=== PATIENT | female | born 1955 | race Caucasian/White ===

== ENCOUNTER 2023-11-08 07:07 | Day surgery (SDC) | payer MEDICARE, BC ==
[2023-11-08] VITALS (18 sets, daily range): BP systolic 116–171; BP diastolic 63–92
[~2023-11-08] VITALS: Ht 162.6 cm; Wt 66.9 kg
[~2023-11-08 07:07] MED LIST: Acetaminophen 500 MG Tab PO SCH; BENAZEPRIL HCL5 M2 PO; CeFAZolin Sodium 2,000 MG in NS 50 ML IV SCH; Chlorhexidine Mouth Care 15 ML UDC MT SCH; GABA100 PO; Lactated Ringer's 1,000 ML IV SCH; MELO7.5 PO; OxyCODONE HCL 10 MG TABCR PO SCH; Zovirax Cream 5%2 GM TOP
[2023-11-08] MEDS ORDERED: NS IV SCH (07:35)
[2023-11-08] MEDS ORDERED: TRANEXAMIC ACID IV SCH (07:35)
[2023-11-08] MEDS ORDERED: Ropivacaine 0.5% HCl/Pf 67.75 MG,EPINEPHrine HCL 0.25 MG,Ketorolac Tromethamine 15 MG,C... INFIL SCH (07:35)
--- NOTE | 2023-11-08 08:37 | NUR ---
0715 AMBULATE TO [facility], AT BEDSIDE. PRE OP TEACHING DONE. DR CHAPMAN SEES PATIENT, MARTIN SITE 0830 AMBULATE TO BATHROOM,VOIDS AND GARGLES
[2023-11-08] MEDS ORDERED: FentaNYL Citrate 50 MCG/ML 2 ML Injection ONE (08:52)
[2023-11-08] MEDS ORDERED: Midazolam HCl 1MG / ML 2ML Vial ONE ×2 (08:52→09:04)
[2023-11-08] MEDS ORDERED: propofoL 20 ML IV ONE ×3 (09:08→10:22)
[2023-11-08] MEDS ORDERED: ePHEDrine Sulfate 50 MG/ML 1ML Injection ONE (09:44)
[2023-11-08] MEDS ORDERED: Lactated Ringer's 1,000 ML IV SCH (09:45)
[2023-11-08] MEDS ORDERED: Metoclopramide HCl 5MG / ML 2ML Vial IV PRN (09:50)
[2023-11-08] MEDS ORDERED: OxyCODONE HCL 5 MG TAB PO PRN ×2 (09:50)
[2023-11-08] MEDS ORDERED: Promethazine HCl 25 MG Tab PO PRN (09:50)
[2023-11-08] MEDS ORDERED: Magnesium Hydroxide Conc 10 ML UDC PO PRN (09:50)
[2023-11-08] MEDS ORDERED: Ondansetron HCl 2 MG / ML 2ML Vial IV PRN (09:50)
[2023-11-08] MEDS ORDERED: FLU VACC QS2023-24(6MOS UP)/PF 60 MCG/0.5 ML SYRINGE IM SCH (09:55)
[2023-11-08] MEDS ORDERED: Bisacodyl 10 MG Supp PR PRN (09:55)
[2023-11-08] MEDS ORDERED: HYDROmorphone HCl/Pf 1MG SYR IV PRN (09:55)
[2023-11-08] MEDS ORDERED: DiphenhydrAMINE HCL 25 MG Cap PO PRN (09:55)
[2023-11-08] MEDS ORDERED: ACYCLOVIR 5% TOP PRN (10:10)
[2023-11-08] MEDS ORDERED: Ketorolac Tromethamine 15mg Vial IV SCH (12:00)
--- NOTE | 2023-11-08 12:26 | NUR ---
POST-OP PATIENT TO ROOM 216 WITH L TKA. AQUACEL WITH KATHY WRAP IN PLACE. C/D/I. ICE COREY IN PLACE. SCD'S ON. TXA TRASFUSED, PATIENT IS ABLE TO WIGGLE ALL TOES AND LIFT FEET. HAS SENSATION TO BILAT LE. VSS. RESTING COMFORTABLY ON RA. DENIES N/V, PAIN. DENIES NEED TO VOID AT THIS TIME. CALL LIGHT IN REACH.
[2023-11-08] MEDS ORDERED: Gabapentin 100 MG Cap PO SCH (14:00)
[2023-11-08] MEDS ORDERED: Acetaminophen 500 MG Tab PO SCH (16:00)
--- NOTE | 2023-11-08 16:56 | NUR ---
SHIFT SUMMARY POD0 L TKA, AQUACEL AND KATHY WRAP TO LEFT LEG C/D/I. WORKED WITH THERAPY, UP TO CHAIR. ICE PACK IN PLACE. MEDICATED FOR PAIN PER EMAR. TOLERATING WELL. DENIES N/V. TOLERATING PO INTAKE. AWAITING POST OF VOID. WAS STRAIGHT CATHED IN PACU FOR 600ML. IVF RUNNING. ORIENTED TO ROOM. CALLIGHT IN REACH.
[2023-11-08] MEDS ORDERED: CeFAZolin Sodium 2,000 MG in NS 50 ML IV SCH (17:00)
[2023-11-08] MEDS ORDERED: Docusate Sodium 100 MG Cap PO SCH (21:00)
[2023-11-09 03:45] VITALS: BP 134/78
--- NOTE | 2023-11-09 04:51 | NUR ---
SHIFT SUMMARY POD1 L TKA. DRESSING IS C/D/I. VSS. PT SLEPT WELL T/O THE NIGHT. MEDICATED FOR PAIN W/ PRN'S AND SCHEDULED W/ GOOD RESULTS. PT EXPRESSESS ANXIETY OVER ANY PAIN OR DISCOMFORT. AMBULATED TO THE BATHROOM MULTIPLE TIMES TO VOID W/O DIFFICULTY. TOLLERATING PO INTAKE W/O N/V. OVERALL, NO ACUTE EVENTS T/O THE NIGHT. PLAN TO D/C TODAY.
[2023-11-09 05:31] LABS: BASOPHILS ABSOLUTE AUTO 0.04 K/mm3 (0.00-0.23); BASOPHILS PERCENT AUTO 0 % (0-2); EOSINOPHILS ABSOLUTE AUTO 0.28 K/mm3 (0.00-0.68); EOSINOPHILS PERCENT AUTO 3 % (0-6); Hematocrit 32.3 % (33.0-51.0); Hemoglobin 11.1 g/dL (11.5-16.0); IMMATURE GRAN ABSOLUTE AUTO 0.03 K/mm3 (0.00-0.10); IMMATURE GRAN PERCENT AUTO 0 % (0-1); LYMPHOCYTES ABSOLUTE AUTO 2.02 K/mm3 (0.84-5.20); LYMPHOCYTES PERCENT AUTO 20 % (21-46); MONOCYTES ABSOLUTE AUTO 0.91 K/mm3 (0.16-1.47); MONOCYTES PERCENT AUTO 9 % (4-13); Mean Corpuscular HGB 33.6 pg (26.0-34.0); Mean Corpuscular HGB Conc 34.4 g/dL (31.5-36.5); Mean Corpuscular Volume 98 fL (80-100); Mean Platelet Volume 9.4 fL (9.1-12.4); NEUTROPHILS ABSOLUTE AUTO 6.67 K/mm3 (1.96-9.15); NEUTROPHILS PERCENT AUTO 67 % (41-73); Platelet Count 236 K/mm3 (150-400); RDW Coefficient Variation 12.2 % (11.7-14.2); RDW Standard Deviation 44.2 fL (35.1-46.3); White Blood Cell Count 9.95 K/mm3 (4.00-11.30)
[2023-11-09 07:08] VITALS: BP 124/68
[2023-11-09 07:18] LABS: Anion Gap Unable to Calculate mmol/L (6-16); Blood Urea Nitrogen 9 mg/dL (8-24); Bun/Creatinine Ratio 20.2 (12.0-20.0); CO2, Blood 33 mmol/L (21-32); Calcium, Blood 8.5 mg/dL (8.5-10.1); Chloride, Blood 106 mmol/L (98-108); Creatinine, Blood 0.45 mg/dL (0.40-1.00); Glomerular Filtration Rate 103 (60-); Glucose, Blood 117 mg/dL (70-99); Sodium, Blood 136 mmol/L (136-145)
[2023-11-09] MEDS ORDERED: Lisinopril 10 MG Tab PO SCH (09:00)
[2023-11-09] MEDS ORDERED: Aspirin 81 MG Chew PO SCH (09:00)
[2023-11-09] MEDS ORDERED: ASPI81CH PO (09:08)
[2023-11-09] MEDS ORDERED: Percocet 5-3251 EACH PO (09:09)
--- NOTE | 2023-11-09 10:02 | NUR ---
DISCHARGE SUMMARY PT A&OX4, VSS/RA, TOMAS PO, VOIDING, AMB SBA FWW, PAIN MANAGED, IV DC'D. DC INS PROVIDED. PT REP UNDERSTANDING THOSE INSTRUCTIONS. LEFT FLOOR VIA WC WITH FLORAL CLERK TO GO HOME WITH , WITH ALL PERSONAL POSSESSIONS INCLUDING DC PACKET, AQUACEL DRESSINGS; SCRIPTS FILLED AND AT HOME PER PT.
== END 2023-11-09 09:45 | disposition home or self-care (01) ==
LOC: ORSCMMR 07:07 → ORD 08:15 → SURS 11:41 → ORSCMMR 11-09 09:45
PROVIDERS: Orthopaedic Surgery
PROC: 0SRD0JA Replacement of Left Knee Joint with Synthetic Substitute, Uncemented, Open Approach (ICD-10-PCS; principal; 2023-11-08 08:15)
DX: M17.12 Unilateral primary osteoarthritis, left knee (principal); Z96.641 Presence of right artificial hip joint; I10 Essential (primary) hypertension; E78.5 Hyperlipidemia, unspecified; Z79.899 Other long term (current) drug therapy
CPT/HCPCS: 36415; 73560-LT; 80048; 85025; 97110; 97116; 97162; A9270; C1713; C1776; J0171; J0690; J0735; J1885; J2250; J2704; J2795; J3010; J7120